=== PATIENT | female | born 1980 | race Caucasian/White ===

== ENCOUNTER 2019-10-07 06:27 | Day surgery (SDC) | payer OTHER ==
[2019-10-03 12:09] VITALS: BMI 24.7
--- NOTE | 2019-10-06 16:15 | P.HPOB ---
History of Present Illness H&P Date: 10/06/19 Chief Complaint: Family planning [place] is a 39-year-old female who is completed her family planning and desires permanent sterilization. Risks/benefits/alternatives to a left scopic tubal occlusion with Filshie clips was reviewed with the patient in detail and all questions were answered for her prior to proceeding to the operating room. Risks did include but were not limited to bleeding/infection/damage to bladder/damage to bowel/nerve and vascular injuries. Risk of failure was discussed and was reported to be somewhere around 4% and this procedure is designed to be permanent and not designed to be reversed. All other questions were answered for her prior to proceeding to the operating room. Should she not be bleeding heavily we will plan to also do her Pap smear That time. Past Medical History Past Medical History: GI Bleed, Hypertension Additional Past Medical History / Comment(s): Hx Ulcerative Colitis, hx hypertension during one . History of Any Multi-Drug Resistant Organisms: None Reported Past Surgical History: Adenoidectomy, Section, Tonsillectomy Additional Past Surgical History / Comment(s): Colonoscopies. Past Anesthesia/Blood Transfusion Reactions: No Reported Reaction Past Psychological History: Anxiety, Depression Smoking Status: Former smoker Past Alcohol Use History: None Reported Additional Past Alcohol Use History / Comment(s): Quit smoking 6 months ago, smoked 1 cigarette daily for 5 yrs. Past Drug Use History: None Reported - Past Family History Father Family Medical History: Diabetes Mellitus Medications and Allergies Home Medications Medication Instructions Recorded Confirmed Type Control Pill 1 tab PO HS 10/03/19 10/03/19 History PARoxetine HCL [Paxil] 30 mg PO HS 10/03/19 10/03/19 History Allergies Allergy/AdvReac Type Severity Reaction Status Date / Time No Known Allergies Allergy Verified 10/03/19 11:55 Exam Osteopathic Statement: *. No significant issues noted on an osteopathic structural exam other than those noted in the History and Physical/Consult. - OBG Physical Exam Breast: both: normal (no masses) Abdomen: bowel sounds normal, no diffuse tenderness, no bruit present, no guarding noted, no hepatomegaly, no splenomegaly, no mass Vulva: both: normal Vagina: normal moisture, no discharge Cervix: no lesion, no discharge Uterus: normal size, normal contour Adnexa: both: normal Anus/Rectum: normal perianal skin, no rectal mass, no hemorrhoids, heme negative
[~2019-10-07 06:27] MED LIST: Pre Op ABX Message 1 EACH MISC MISCELLANE ONE
[2019-10-07 06:53] VITALS: TEMP 97.5
[2019-10-07] MEDS ORDERED: LACTATED RINGERS 1,000 ML IV ONE ×3 (07:00→08:47)
[2019-10-07] MEDS ORDERED: LIDOCAINE 1% 20 ML VIAL (10MG/ML) FOR IV START INTRADERMA ONE (07:00)
[2019-10-07] MEDS ORDERED: DEXAMETHASONE SOD PHOSPHATE 10 MG/ML 1 ML VIAL IV ONE (07:13)
[2019-10-07] MEDS ORDERED: MIDAZOLAM 2 MG/2 ML VIAL IV PRN (07:13)
[2019-10-07] MEDS ORDERED: LACTATED RINGERS 1,000 ML IV SCH (07:13)
[2019-10-07] MEDS ORDERED: SCOPOLAMINE 1.5MG/72HR PATCH TRANSDERM ONE (07:13)
[2019-10-07] MEDS ORDERED: ONDANSETRON 4 MG/2 ML VIAL IVP ONE (07:13)
[2019-10-07] MEDS ORDERED: KETOROLAC 30 MG/ML 1 ML VIAL ONE (07:38)
[2019-10-07] MEDS ORDERED: MIDAZOLAM 2 MG/2 ML VIAL ONE (07:38)
[2019-10-07] MEDS ORDERED: fentaNYL (PF) 50 MCG/ML 2 ML AMP ONE (07:38)
[2019-10-07] MEDS ORDERED: GLYCOPYRROLATE 0.2 MG/ML 2 ML VIAL ONE (07:38)
[2019-10-07] MEDS ORDERED: PROPOFOL 10 MG/ML 20 ML VIAL IV ONE (07:38)
[2019-10-07] MEDS ORDERED: ROCURONIUM BROMIDE 10 MG/ML 10 ML VIAL IV ONE (07:38)
[2019-10-07] MEDS ORDERED: LIDOCAINE 1% INJ 10MG/ML (20 ML MDV) ONE (07:38)
[2019-10-07] MEDS ORDERED: NEOSTIGMINE 1 MG/ML 10 ML VIAL ONE (07:38)
[2019-10-07] MEDS ORDERED: BUPIVACAINE (PF) 0.25% 30 ML VIAL SQ ONE ×2 (08:08)
--- NOTE | 2019-10-07 08:45 | P.OP ---
Date of Procedure: 10/07/19 Preoperative Diagnosis: Family planning Postoperative Diagnosis: Same Procedure(s) Performed: Laps scopic tubal occlusion with Filshie clips and Pap smear Anesthesia: [place] Surgeon: Thomas Hutson Estimated Blood Loss (ml): 3 IV fluids (ml): 500 Urine output (ml): 50 Pathology: other (Pap smear) Condition: stable Disposition: same day Operative Findings: Normal female pelvic anatomy Description of Procedure: Patient states the operating suite where a general anesthetic was found be adequate. She was prepped and draped in the normal sterile fashion and placed in dorsal lithotomy position. Initially a speculum was inserted the vagina and into lip of cervix was identified and grasped with an Allis clamp. Cervix was then sounded to 8 cm and a uterine manipulator was inserted without difficulty. These other incidents were then removed and red rubber catheter was used to drain the bladder of urine. Gloves were then changed and attention was turned to the abdominal portion of the procedure where 3 mL of quarter percent Marcaine was injected periumbilically. Through this injected anesthetic a 5 mm skin incision was made and through this incision under direct visualization with an optical trocar and sleeve the camera was inserted. Once peritoneal placement was assured gas was allowed to fully expel band the abdomen and patient was then placed in steep Trendelenburg position. A second port and sleeve were then inserted through an 8 mm skin incision in her scar in the midline. Once this was accomplished observations the pelvis and abdomen were performed. Once completed Filshie clips were placed 2-3 cm from the uterine cornu on both the right and left fallopian tubes. No bleeding is noted in the mesosalpinx, therefore instruments are removed and gas was allowed to expel from the abdomen. 5 deep breaths were provided during this process. 4-0 Vicryl was then used to close the incisions subcuticularly once ports were removed. The remaining 7 mL of quarter percent Marcaine was injected injected around these incisions. Attention was again turned to the vaginal portion of the procedure where the manipulator was removed without difficulty speculum was reinserted and a Pap smear was obtained. Tissue was collected and sent to pathology for evaluation. All instruments were then removed. Sponge, lap, needle counts were all correct 2. Patient was then taken to the recovery room in stable and satisfactory condition. Plan - Discharge Summary Discharge Rx Participant: Yes New Discharge Prescriptions: New Ibuprofen [Motrin] 600 mg PO Q6HR PRN #30 tab PRN Reason: Pain HYDROcodone/APAP 5-325MG [[place] 5-325] 1 tab PO Q4HR PRN #30 tab PRN Reason: Pain No Action PARoxetine HCL [Paxil] 30 mg PO HS Control Pill 1 tab PO HS Discharge Medication List Control Pill 1 tab PO HS 10/03/19 [History] PARoxetine HCL [Paxil] 30 mg PO HS 10/03/19 [History] HYDROcodone/APAP 5-325MG [[place] 5-325] 1 tab PO Q4HR PRN #30 tab 10/07/19 [Rx] Ibuprofen [Motrin] 600 mg PO Q6HR PRN #30 tab 10/07/19 [Rx] Follow up Appointment(s)/Referral(s): Thomas Hutson DO [Doctor of Osteopathic Medicine] - 2 Weeks Activity/Diet/Wound Care/Special Instructions: No heavy lifting, limit stairs and driving, and pelvic rest. If any high temperatures, heavy bleeding, or severe pain call my office Discharge Disposition: HOME SELF-CARE
[2019-10-07 08:46] VITALS: RESP 16
[2019-10-07] MEDS: HYDROmorphone 0.5 MG/0.5 ML SYRINGE IVP PRN ×2 (08:54→08:59)
[2019-10-07 10:07] VITALS: BP 117/76; PULSE 79
== END 2019-10-07 10:22 | disposition home or self-care (01) ==
LOC: OR 06:27
PROVIDERS: ATTEND Obstetrics & Gynecology
DX: Z30.2 Encounter for sterilization (principal); I10 Essential (primary) hypertension; F41.9 Anxiety disorder, unspecified; F32.9 Major depressive disorder, single episode, unspecified; K51.90 Ulcerative colitis, unspecified, without complications; Z90.89 Acquired absence of other organs; Z87.891 Personal history of nicotine dependence; Z83.3 Family history of diabetes mellitus; Z79.3 Long term (current) use of hormonal contraceptives; Z79.899 Other long term (current) drug therapy
CPT/HCPCS: 81025; 58671; J2250; J2710; J2001; J3010; J1885; J2704; J1170